=== PATIENT | female | born 1960 | race Caucasian/White ===

== ENCOUNTER 2024-12-11 11:47 | Emergency (ER) | payer SELFPAY ==
[2024-12-11 12:19] LABS: Absolute Lymphocytes (CBC) 3.5 K/uL (0.7-4.9); Hematocrit 52.2 % (36.0-45.0); Hemoglobin 17.6 g/dL (12.0-15.0); MCH 30.4 pg (27.0-35.0); MCHC 33.7 g/dL (32.0-36.0); MCV 90.1 fL (80-100); MPV 7.1 fL (7.6-11.3); Nucleated RBC Absolute Count 0.0 (0-0); Nucleated Red Blood Cells % 0.3 % (0-0); RBC Red Blood Cell Count 5.79 M/uL (3.86-4.86); White Blood Count 8.30 thou/uL (4.3-10.9)
[2024-12-11 12:42] LABS: Anion Gap 10.5 mEq/L (5.0-15.0); BUN Blood Urea Nitrogen 5 mg/dL (7-18); Glucose Level 86 mg/dL (74-106); NT PRO-BNP 100 pg/mL (<125); Potassium 3.5 mEq/L (3.5-5.1)
--- NOTE | 2024-12-11 12:50 | RAD REPORT ---
EXAM: Chest Single View HISTORY: 64 years Female CHEST PAIN COMPARISON: No prior exams FINDINGS: LUNGS/PLEURA: The lungs are clear. No pleural effusions or pneumothorax. No pulmonary edema. CARDIAC/MEDIASTINUM: The cardiac silhouette is within normal limits. UPPER ABDOMEN: No significant abnormality. BONES: No acute abnormality. LINES/TUBES/OTHER: N/A IMPRESSION: No evidence of acute cardiopulmonary disease.
[2024-12-11 12:53] LABS: Troponin High Sensitivity < 3.0 pg/mL (<58.9)
[2024-12-11] MEDS ORDERED: NA CHLORIDE 0.9% 1,000 ML ONE (13:15)
--- NOTE | 2024-12-11 14:40 | EDPHYS ---
Physician Documentation [facility] Name: Daysi Abbasi Age: 64 yrs Sex: Female : 1960 Arrival Date: 12/11/2024 Time: 11:47 Bed 8 Private MD: ED Physician Damian Perez HPI: 12/11 16:45 This 64 yrs old Female presents to ER via Ambulatory with complaints of Chest dr5 Pain, Dizziness. 16:45 Onset: The symptoms/episode began/occurred 2 month(s) ago. Patient is a 62-year-old dr5 female with history of anxiety, depression, hyperlipidemia coming in with intermittent chest pressure and weakness has been going on for the past "months. Patient reports that she has been seen by her doctor for these symptoms. Patient reports had blood work done last week in which she got a call this morning saying that her sodium was dangerously low. Patient reports she has blood work tomorrow morning for further management. Patient denies any symptoms during initial assessment.. Historical: - Allergies: 12:06 No Known Allergies; ph - PMHx: 12:06 Anxiety; Depression; Hypercholesterolemia; ph - PSHx: 12:06 Total abdominal hysterectomy; ph - Immunization history:: Adult Immunizations unknown. - Infectious Disease History:: Denies. - Social history:: Smoking status: Patient reports the use of cigarette tobacco products, smokes one pack cigarettes per day. ROS: 16:45 Constitutional: as per hpi dr5 Exam: 16:45 Constitutional: This is a well developed, well nourished patient who is awake, alert, dr5 and in no acute distress. Head/Face: Normocephalic, atraumatic. Eyes: Pupils equal round and reactive to light, extra-ocular motions intact. Lids and lashes normal. Conjunctiva and sclera are non-icteric and not injected. Cornea within normal limits. Periorbital areas with no swelling, redness, or edema. Neck: Trachea midline, no thyromegaly or masses palpated, and no cervical lymphadenopathy. Supple, full range of motion without nuchal rigidity, or vertebral point tenderness. No Meningismus. Chest/axilla: Normal chest wall appearance and motion. Nontender with no deformity. No lesions are appreciated. Cardiovascular: Regular rate and rhythm with a normal S1 and S2. Normal PMI, no JVD. No pulse deficits. Respiratory: Lungs have equal breath sounds bilaterally, clear to auscultation. No rales, rhonchi or wheezes noted. No increased work of breathing, no retractions or nasal flaring. Abdomen/GI: Soft, non-tender, non-distended Back: No spinal tenderness. No costovertebral tenderness. Full range of motion. Skin: Warm, dry with normal turgor. Normal color with no rashes, no lesions, and no evidence of cellulitis. MS/ Extremity: Pulses equal, no cyanosis. Neurovascular intact. Full, normal range of motion. Neuro: Awake and alert, GCS 15, oriented to person, place, time, and situation. Cranial nerves II-XII grossly intact. Motor strength 5/5 in all extremities. Sensory grossly intact. Cerebellar exam normal. Normal gait. Vital Signs: 12:00 BP 158 / 90; Pulse 66; Resp 18; Pulse Ox 98% on R/A; db 12:03 Pulse 70; Resp 18; Temp 97.9; Pulse Ox 97% on R/A; Weight 63.05 kg; Height 5 ft. 7 in. ;ph 12:30 BP 172 / 94; Pulse 68; Resp 16; Pulse Ox 96% on R/A; db 13:30 BP 157 / 109; Pulse 64; Resp 18; Pulse Ox 67% on R/A; zm 14:00 BP 164 / 82; Pulse 61; Resp 16; Pulse Ox 100% ; db 14:30 BP 168 / 82; Pulse 60; Resp 16; Pulse Ox 95% ; db 12:03 Body Mass Index 21.77 (63.05 kg, 170.18 cm) ph [place] Coma Score: 13:32 Eye Response: spontaneous(4). Verbal Response: oriented(5). Motor Response: obeys zm commands(6). Total: 15. MDM: 11:52 Medical Screening Exam initiated dr5 16:45 Differential diagnosis: viral Infection, bacterial infection, STEMI, NSTEMI, dr5 electrolyte abnormality, hyponatremia, dehydration. Data reviewed: vital signs, nurses notes, lab test result(s), CBC, white blood cell count, hemoglobin, hematocrit, platelets, electrolytes, sodium, potassium, chloride, serum bicarbonate, BUN, creatinine, serum glucose, EKG, radiologic studies, plain films. Consideration of Admission/Observation Escalation of care including admission/observation considered. Escalation considered patient found to have elevated troponin or critical low sodium. I considered the following discharge prescriptions or medication management in the emergency department I discussed and recommended Over The Counter medications, Medications were administered in the Emergency Department. See MAR. Care significantly affected by the following chronic conditions: Hyperlipidemia, anxiety, depression, hypertension. Care significantly affected by the following Social Determinants of Health: Poor access to healthcare and/or lack of insurance, Poor access to transportation, Problems related to employment. Counseling: I had a detailed discussion with the patient and/or guardian regarding the historical points, exam findings, and any diagnostic results supporting the discharge/admit diagnosis, the presence of at least one elevated blood pressure reading (>120/80) during this emergency department visit, lab results, radiology results, the need for outpatient follow up, for definitive care, a family practitioner, to return to the emergency department if symptoms worsen or persist or if there are any questions or concerns that arise at home. Medication response: Normal saline. Response to treatment: the patient's symptoms have resolved after treatment, the patient developed rash. Special discussion: I discussed with the patient/guardian in detail that at this point there is no indication for admission to the hospital. It is understood, however, that if the symptoms persist or worsen the patient needs to return immediately for re-evaluation. Based on the history and exam findings, there is no indication for further emergent testing or inpatient evaluation. I discussed with the patient/guardian the need to see the primary care provider for further evaluation of the symptoms. ED course: Patient reports she is feeling much better after normal saline. Sodium level is 129. Will have patient follow-up with primary care doctor tomorrow after blood draw. Patient is agreeable plan. All questions answered strict ER precautions given.. Patient has not had chest pain throughout ER stay.. 12/11 11:52 Order name: Basic Metabolic Panel; Complete Time: 12:54 12/11 11:52 Order name: CBC with Diff; Complete Time: 12:47 12/11 11:52 Order name: NT PRO-BNP; Complete Time: 12:54 12/11 11:52 Order name: Troponin HS; Complete Time: 12:54 12/11 11:52 Order name: XRAY Chest (1 view); Complete Time: 12:54 12/11 11:52 Order name: EKG; Complete Time: 11:52 12/11 11:52 Order name: Cardiac monitoring; Complete Time: 12: dr5 12/11 11:52 Order name: EKG - Nurse/Tech; Complete Time: : dr5 12/11 11:52 Order name: IV Saline Lock; Complete Time: 12: dr5 12/11 11:52 Order name: Labs collected and sent; Complete Time: 12:12/11 11:52 Order name: O2 Per Protocol; Complete Time: 12/11 11:52 Order name: O2 Sat Monitoring; Complete Time: : dr5 EC:08 Rate is 69 beats/min. Rhythm is regular. QRS [place] is Normal. [place] interval is normal at dr5 156 msec. QRS interval is normal at 78 msec. QT interval is normal at 394 msec. Clinical impression: Normal ECG and No evidence of ischemia. Administered Medications: 13:29 Drug: NS 0.9% IV 1000 ml IV at 1000 ml once; to be given as a bolus over 60 minutes zm Route: IV; Rate: 1000 ml; Site: right antecubital; 14:47 Follow up: Response: No adverse reaction; IV Status: Completed infusion; IV Intake: db 1000ml Disposition: 16:50 I was immediately available on-site in the Emergency Department for consultation in the ms3 care of the patient. Disposition Summary: 12/11/24 14:39 Discharge Ordered Notes: Location: Home dr5 Condition: Stable dr5 Diagnosis - Dehydration dr5 Followup: dr5 - With: Emergency Department - When: As needed - Reason: Worsening of condition Followup: dr5 - With: Private Physician - When: 1 - 2 days - Reason: Recheck today's complaints, Continuance of care, Re-evaluation by your physician Discharge Instructions: - Discharge Summary Sheet dr5 - Dehydration, Adult dr5 - Hyponatremia, [id number] dr5 Forms: - Medication Reconciliation Form dr5 - Patient Portal Instructions dr5 - Leadership Thank You Letter dr5 Signatures: Dispatcher [employer] EDWV Bre Naranjo RN RN Damian Ngo DO DO ms3 Ludivina Harp RN Zacarias Prieto, JAVA DEVELOPER ANALYST-C JAVA DEVELOPER ANALYST-5 Katia Murray RN db Corrections: (The following items were deleted from the chart) 11: 11:52 BASIC METABOLIC PANEL+C.LAB.BRZ ordered. [facility] EDMS 11:52 11:52 CBC+H.LAB.BRZ ordered. EDMS EDMS 11:52 PROBNP+C.LAB.BRZ ordered. EDMS EDMS 11:52 Troponin High Sensitivity+C.LAB.BRZ ordered. EDMS EDMS
--- NOTE | 2024-12-11 14:40 | ER ---
Nurse's Notes [facility] Name: Daysi Abbasi Age: 64 yrs Sex: Female : 1960 Arrival Date: 12/11/2024 Time: 11:47 Bed 8 Private MD: Diagnosis: Dehydration Presentation: 12/11 12:03 Chief complaint: Patient states: Intermittent chest pain, dizziness, and SOB that has ph been going on for a few months, also states that her doctor's office called and told her that her sodium was dangerously low. Coronavirus screen: At this time, the client does not indicate any symptoms associated with coronavirus-19. Ebola Screen: No symptoms or risks identified at this time. Initial Sepsis Screen: Does the patient meet any 2 criteria? No. Patient's initial sepsis screen is negative. Does the patient have a suspected source of infection? No. Patient's initial sepsis screen is negative. Risk Assessment: Do you want to hurt yourself or someone else? Patient reports no desire to harm self or others. Onset of symptoms. 12:03 Method Of Arrival: Ambulatory ph 12:03 Acuity: JULIANA 2 ph Historical: - Allergies: 12:06 No Known Allergies; ph - PMHx: 12:06 Anxiety; Depression; Hypercholesterolemia; ph - PSHx: 12:06 Total abdominal hysterectomy; ph - Immunization history:: Adult Immunizations unknown. - Infectious Disease History:: Denies. - Social history:: Smoking status: Patient reports the use of cigarette tobacco products, smokes one pack cigarettes per day. Screenin:24 [facility] ED Fall Risk Assessment (Adult) History of falling in the last 3 months, db including since admission No falls in past 3 months (0 pts) Confusion or Disorientation No (0 pts) Intoxicated or Sedated No (0 pts) Impaired Gait No (0 pts) Mobility Assist Device Used No (0 pt) Altered Elimination No (0 pt) Score/Fall Risk Level 0 - 2 = Low Risk Oriented to surroundings, Maintained a safe environment. Abuse screen: Denies threats or abuse. Denies injuries from another. Nutritional screening: No deficits noted. Tuberculosis screening: No symptoms or risk factors identified. Assessment: 12:22 Reassessment: Patient appears in no apparent distress at this time. Patient and/or db family updated on plan of care and expected duration. Pain level reassessed. Patient is alert, oriented x 3, equal unlabored respirations, skin warm/dry/pink. General: Appears in no apparent distress. comfortable, Behavior is calm, cooperative. Neuro: Level of Consciousness is awake, alert, obeys commands, Oriented to person, place, time, situation. 14:15 Reassessment: Patient appears in no apparent distress at this time. Patient and/or db family updated on plan of care and expected duration. Pain level reassessed. Patient is alert, oriented x 3, equal unlabored respirations, skin warm/dry/pink. 14:46 Reassessment: Patient appears in no apparent distress at this time. Patient and/or db family updated on plan of care and expected duration. Pain level reassessed. Patient is alert, oriented x 3, equal unlabored respirations, skin warm/dry/pink. Patient states feeling better. Patient states symptoms have improved. 14:46 Pain: Complains of pain in chest Pain does not radiate. Pain began gradually. db Cardiovascular: Reports chest pain. Vital Signs: 12:00 BP 158 / 90; Pulse 66; Resp 18; Pulse Ox 98% on R/A; db 12:03 Pulse 70; Resp 18; Temp 97.9; Pulse Ox 97% on R/A; Weight 63.05 kg; Height 5 ft. 7 in. ;ph 12:30 BP 172 / 94; Pulse 68; Resp 16; Pulse Ox 96% on R/A; db 13:30 BP 157 / 109; Pulse 64; Resp 18; Pulse Ox 67% on R/A; zm 14:00 BP 164 / 82; Pulse 61; Resp 16; Pulse Ox 100% ; db 14:30 BP 168 / 82; Pulse 60; Resp 16; Pulse Ox 95% ; db 12:03 Body Mass Index 21.77 (63.05 kg, 170.18 cm) ph [place] Coma Score: 13:32 Eye Response: spontaneous(4). Verbal Response: oriented(5). Motor Response: obeys zm commands(6). Total: 15. ED Course: 11:51 Patient arrived in ED. al6 11:51 Zacarias Agrawal FNP-C is [facility]. dr5 11:51 Damian Perez DO is Attending Physician. dr5 11:58 Katia Murray, RN is Primary Nurse. db 12:05 Initial lab(s) drawn, by sc, sent to lab. Inserted saline lock: 20 gauge in right zm antecubital area, using aseptic technique. Blood collected. Flushed with 10 mL NS. 12:06 Triage completed. ph 12:07 Arm band placed on Patient placed in an exam room, on a stretcher, on electronic device monitor, ph on pulse oximetry. 12:21 Basic Metabolic Panel Sent. zm 12:21 CBC with Diff Sent. zm 12:21 NT PRO-BNP Sent. zm 12:21 Troponin HS Sent. zm 12:24 Patient has correct armband on for positive identification. Bed in low position. Call db light in reach. Side rails up X 1. Client placed on continuous cardiac and pulse oximetry monitoring. NIBP monitoring applied. electronic device monitor on. Pulse ox on. NIBP on. 12:24 EKG done. Patient maintains SpO2 saturation greater than 95% on room air. db 12:44 XRAY Chest (1 view) In Process Unspecified. EDMS 14:46 Provided Education on: DISCHARGE. db 14:46 No provider procedures requiring assistance completed. IV discontinued, intact, db bleeding controlled, No redness/swelling at site. Administered Medications: 13:29 Drug: NS 0.9% IV 1000 ml IV at 1000 ml once; to be given as a bolus over 60 minutes zm Route: IV; Rate: 1000 ml; Site: right antecubital; 14:47 Follow up: Response: No adverse reaction; IV Status: Completed infusion; IV Intake: db 1000ml Medication: 12:24 VIS not applicable for this client. db Intake: 14:47 IV: 1000ml; Total: 1000ml. db Outcome: 14:39 Discharge ordered by . dr5 14:46 Discharged to home ambulatory, db 14:46 Condition: stable 14:46 Discharge instructions given to patient, Instructed on discharge instructions, follow up and referral plans. 14:47 Patient left the ED. db Signatures: Dispatcher [employer] Bre Muhammad RN RN ph Martinez, Zaina, RN RN zm Benton, Danielle, RN RN db Zacarias Agrawal, PLATE GRINDER-C PLATE GRINDER-Cdr5 Mayra Whaley Corrections: (The following items were deleted from the chart) 14:47 12:22 Reassessment: Patient appears in no apparent distress at this time. Patient db and/or family updated on plan of care and expected duration. Pain level reassessed. Patient is alert, oriented x 3, equal unlabored respirations, skin warm/dry/pink. db
[2024-12-11 14:53] VITALS: TEMP 97.9
[2024-12-11 14:58] VITALS: BP 168/82; O2SAT 95
== END 2024-12-11 14:47 | disposition home or self-care (01) ==
LOC: ER 11:47
DX: E86.0 Dehydration (principal); R07.9 Chest pain, unspecified; F17.210 Nicotine dependence, cigarettes, uncomplicated
CPT/HCPCS: 36415; 71045; 80048; 83880; 84484; 85025; 93005; 96360; 99285; J7030